=== PATIENT | male | born 1985 | race Caucasian/White ===

== ENCOUNTER → 2016-09-22 | Outpatient (CLI) | payer OTHER ==
[~2016-09-22] MED LIST: CEPH500C PO; SULF800T23 PO
== END | disposition home or self-care (01) ==
LOC: C.LAB 21:27
DX: Z02.83 Encounter for blood-alcohol and blood-drug test (principal)

== ENCOUNTER 2017-08-04 12:46 | Emergency (ER) | payer OTHER ==
[~2017-08-04] VITALS: Ht 188 cm; Wt 67.9 kg
[2017-08-04 12:53] VITALS: TEMP 36.6; Ht 188 cm; Wt 67.9 kg
--- NOTE | 2017-08-04 13:11 | EMERGENCY ROOM VISIT NOTE ---
History Report prepared by Sundar: Luis Chu Under the Supervision of: Dr. Alvarado Mendez M.D. First contact with patient: 12:58 Chief Complaint: FOOT PAIN Stated Complaint: L FOOT INFECTED AND SWOLLEN History of Present Illness The patient is a 32 year old male who presents to the Emergency Room with complaints of constant left foot pain beginning yesterday. He rates his pain as a 3/10 in severity. The patient states he noticed his left foot was pruritic yesterday. He reports the foot became red and swollen. The patient notes his left foot has also been painful. He reports today his right foot became red and swollen. The patient denies any injury, fever, chest pain, and shortness of breath. He states he has a past history of MRSA. The patient states he was put on Suboxone yesterday for his history of opiate abuse. Source of History: patient Onset: yesterday Position: foot (left) Symptom Intensity: 3/10 Timing: constant Associated Symptoms: No fevers, No chest pain, No SOB Note: Associated symptoms: bilateral foot redness and swelling Review of Systems See HPI for pertinent positives & negatives. A total of 10 systems reviewed and were otherwise negative. Past Medical & Surgical Medical Problems: (1) MRSA (methicillin resistant staph aureus) culture positive (2) Opiate abuse, continuous Old medical records were reviewed. Nurse's notes were reviewed and I agree with. Family History Patient reports no known family medical history. Social History Smoking Status: Never Smoker Drug Use: other (opiate) Occupation Status: employed Current/Historical Medications Scheduled Amoxicillin & Pot Clavulanate (Augmentin 875-125 mg), 875 MG PO BID Buprenorphine Hcl-Naloxone Hcl (Suboxone 8-2 Mg), 1 TAB PO BID Sulfa/Trimethoprim (Bactrim Ds 800MG/160MG), 1 TAB PO BID Allergies Coded Allergies: No Known Allergies (Unverified , 08/04/17) Physical Exam Vital Signs Date Time Temp Pulse Resp B/P (MAP) Pulse Ox O2 Delivery O2 Flow Rate FiO2 08/04/17 15:25 70 18 112/72 100 08/04/17 14:11 90 16 128/77 96 Room Air 08/04/17 12:53 36.6 95 16 137/73 98 Room Air Physical Exam General: Non-ill appearing young male in no acute distress. HEENT: Normal cephalic atraumatic. Pupils are equal round and reactive to light. Extraocular movements are intact. Oropharynx is pink with moist mucous membranes. No swelling of the mouth lips or tongue. Multiple lesions to his face. Neck: Supple with a midline trachea. No meningeal signs or stiffness, no JVD or bruits. No Stridor. Chest: Clear to auscultation bilaterally. No wheezes or rhonchi. No increased work of breathing. Heart: regular rate and rhythm. Abdomen: Soft nontender, nondistended without rebound guarding or rigidity. Extremities: No cyanosis clubbing or edema. No calf tenderness or assymetry Mild redness of the left medial shift mostly above the ankle joint. Minimal redness to right foot. Spine/Back. Non tender to palpation. No CVA tenderness Skin: Good turgor without rashes. Neurologic exam: Cranial nerves two through 12 are intact. Motor and sensation are intact and symmetrical throughout. Medical Decision & Procedures ER Provider Diagnostic Interpretation: X-ray results as stated below per interpretation by me and the radiologist: L ANKLE MIN 3 VIEWS ROUTINE HISTORY: 32 years-old Male left ankle pain and swelling acute left ankle pain and swelling COMPARISON: None available TECHNIQUE: 3 views of the left ankle FINDINGS: Small plantar and Achilles enthesophytes about the calcaneus with mild associated soft tissue prominence. No acute fracture, dislocation or osteochondral defect. Mild soft tissue swelling about the ankle without opaque foreign body. IMPRESSION: 1. Mild soft tissue swelling without acute fracture or dislocation. 2. Small plantar and Achilles enthesophytes about the calcaneus. The above report was generated using voice recognition software. It may contain grammatical, syntax or spelling errors. Electronically signed by: Steven Apodaca M.D. 08/04/2017 1:31 PM Dictated Date/Time: 08/04/2017 1:30 PM Laboratory Results 08/04/17 13:15 Red Blood Count 4.49, Mean Corpuscular Volume 84.6, Mean Corpuscular Hemoglobin 30.5, Mean Corpuscular Hemoglobin Concent 36.1, Mean Platelet Volume 9.5, Neutrophils (%) (Auto) 77.2, Lymphocytes (%) (Auto) 11.4, Monocytes (%) (Auto) 9.9, Eosinophils (%) (Auto) 1.3, Basophils (%) (Auto) 0.1, Neutrophils # (Auto) 5.53, Lymphocytes # (Auto) 0.82, Monocytes # (Auto) 0.71, Eosinophils # (Auto) 0.09, Basophils # (Auto) 0.01 08/04/17 13:15 Test 08/04/17 13:15 White Blood Count 7.17 K/uL (4.8-10.8) Red Blood Count 4.49 M/uL (4.7-6.1) Hemoglobin 13.7 g/dL (14.0-18.0) Hematocrit 38.0 % (42-52) Mean Corpuscular Volume 84.6 fL (80-100) Mean Corpuscular Hemoglobin 30.5 pg (25-34) Mean Corpuscular Hemoglobin Concent 36.1 g/dl (32-36) Platelet Count 217 K/uL (130-400) Mean Platelet Volume 9.5 fL (7.4-10.4) Neutrophils (%) (Auto) 77.2 % Lymphocytes (%) (Auto) 11.4 % Monocytes (%) (Auto) 9.9 % Eosinophils (%) (Auto) 1.3 % Basophils (%) (Auto) 0.1 % Neutrophils # (Auto) 5.53 K/uL (1.4-6.5) Lymphocytes # (Auto) 0.82 K/uL (1.2-3.4) Monocytes # (Auto) 0.71 K/uL (0.11-0.59) Eosinophils # (Auto) 0.09 K/uL (0-0.5) Basophils # (Auto) 0.01 K/uL (0-0.2) RDW Standard Deviation 36.4 fL (36.4-46.3) RDW Coefficient of Variation 11.8 % (11.5-14.5) Immature Granulocyte % (Auto) 0.1 % Immature Granulocyte # (Auto) 0.01 K/uL (0.00-0.02) Erythrocyte Sedimentation Rate 24 mm/hr (0-14) Anion Gap 6.0 mmol/L (3-11) Est Creatinine Clear Calc Drug Dose 110.4 ml/min Estimated GFR () 125.6 Estimated GFR (Non- 108.4 BUN/Creatinine Ratio 7.1 (10-20) Uric Acid 5.7 mg/dl (2.6-7.2) Calcium Level 8.6 mg/dl (8.5-10.1) C-Reactive Protein 8.78 mg/dl (0-0.29) Laboratory studies as stated above per my review. Medications Administered Medications (Trade) Dose Ordered Sig/Lisseth Route Start Time Stop Time Status Last Admin Dose Admin Ceftriaxone Sodium (Rocephin Inj) 1 gm NOW STAT IV 08/04/17 14:34 08/04/17 14:36 DC 08/04/17 14:45 1 GM Trimethoprim/ Sulfamethoxazole (Septra Ds 800/ 160MG Tab) 1 tab NOW STAT PO 08/04/17 14:34 08/04/17 14:36 DC 08/04/17 14:45 1 TAB Amoxicillin/ Clavulanate Potassium (Augmentin 875MG Home Pack) 1 homepack UD ONCE PO 08/04/17 14:45 08/04/17 14:46 DC 08/04/17 15:24 1 HOMEPACK Trimethoprim/ Sulfamethoxazole (Sulfameth/ Trimeth Ds 800/ 160MG Home Pack) 1 homepack UD ONCE PO 08/04/17 14:45 08/04/17 14:46 DC 08/04/17 15:24 1 HOMEPACK ED Course 1301: Past medical records reviewed. The patient was evaluated in room C04, and a complete history and physical examination were performed. 1434: Ordered Trimethoprim/Sulfamethoxazole 1 tab PO, Rocephin Injection 1 gm IV. 1445: Ordered Trimethoprim/Sulfamethoxazole 1 homepack PO, Amoxicillin/ clavulanate Potassium 1 homepack PO. 1451: Upon reevaluation, the patient is resting comfortable. I discussed the results and treatment plan with him. The patient verbalized agreement of the treatment plan. The patient was discharged home. Medical Decision Differentials include, but are not limited to; Cellulitis, gout, allergic reaction, electrolyte or metabolic abnormality This patient comes in as described above. He was placed in room C4. he has some redness on his left ankle just mostly above the ankle. He is afebrile. He has some minimal redness along the right foot as well. He appears to been itching a lot. He has multiple scabs on his skin on his face as well. Multiple blood testing was obtained. X-ray was obtained. He was reassessed frequently. He appears stable he is afebrile. His white count is not elevated. Sed rate is minimally elevated. CRP is elevated. X-ray of the ankle does not show any acute abnormalities. He has no acute electrolyte or metabolic abnormalities. He was recently started on Suboxone. he has no evidence to suggest an allergic reaction. he has some mild redness to the left astorga and a lesser degree the right foot. I will put him on Bactrim as well as Augmentin. He does have a history of MRSA. He has no evidence of sepsis or systemic infection. he was given Rocephin 1 g IV as well as Bactrim here and prescriptions for both. I highly encouraged him to have somebody look at this tomorrow and outlined the area of redness. He should have a healthcare professional recheck him tomorrow near his house and I told him that he could always come here would be happy to recheck him here as well. In the meantime he should return if: increasing redness, fever or chills, worsening of symptoms , any new problems or concerns. He was happy with the plan and discharged to home. Medication Reconcilliation Current Medication List: was personally reviewed by me Blood Pressure Screening Patient's blood pressure: Normal blood pressure Impression Primary Impression: Cellulitis of both lower extremities Scribe Attestation The scribe's documentation has been prepared under my direction and personally reviewed by me in its entirety. I confirm that the note above accurately reflects all work, treatment, procedures, and medical decision making performed by me. Departure Information Dispostion Home / Self-Care Prescriptions Amoxicillin & Pot Clavulanate (Augmentin 875-125 mg) 1 Tab Tab 875 MG PO BID for 10 Days, #20 TAB Prov: Alvarado Mendez M.D. 08/04/17 Sulfa/Trimethoprim (Bactrim Ds 800MG/160MG) Tab 1 TAB PO BID, #20 TAB Prov: Alvarado Mendez M.D. 08/04/17 Referrals No Doctor, Assigned (PCP) Forms HOME CARE DOCUMENTATION FORM, IMPORTANT VISIT INFORMATION Patient Instructions My [facility] Additional Instructions Rest. Use Bactrim double strength twice a day for 10 days Use Augmentin 875 mg twice a day for 10 days Return to the ER if you have: Fever, flulike symptoms, increasing redness or warmth, worsening symptoms, any new problems or concerns You should have this rechecked tomorrow either by a doctor in your area or we would be happy to see you back in the ER here for recheck as well. It is important that a healthcare provider looks at this tomorrow to ensure that it is not getting worse Return in the meantime if any new problem
[2017-08-04 13:27] LABS: BASO % 0.1 %; BASO ABS # 0.01 K/uL (0-0.2); EOS % 1.3 %; EOS ABS # 0.09 K/uL (0-0.5); HEMOGLOBIN 13.7 g/dL (14.0-18.0); IG# 0.01 K/uL (0.00-0.02); LYMPH % 11.4 %; LYMPH ABS # 0.82 K/uL (1.2-3.4); MEAN CELL VOLUME 84.6 fL (80-100); MEAN CORPUSCULAR HEMOGLOBIN 30.5 pg (25-34); MEAN CORPUSCULAR HGB CONC 36.1 g/dl (32-36); MEAN PLATELET VOLUME 9.5 fL (7.4-10.4); MONO % 9.9 %; MONO ABS # 0.71 K/uL (0.11-0.59); NEUT % 77.2 %; NEUT ABS # 5.53 K/uL (1.4-6.5); PLATELET COUNT 217 K/uL (130-400); RED CELL DISTRIBUTION WIDTH CV 11.8 % (11.5-14.5); RED CELL DISTRIBUTION WIDTH SD 36.4 fL (36.4-46.3); WHITE BLOOD COUNT 7.17 K/uL (4.8-10.8)
--- NOTE | 2017-08-04 13:33 | DIAGNOSTIC IMAGING REPORT ---
L ANKLE MIN 3 VIEWS ROUTINE HISTORY: 32 years-old Male left ankle pain and swelling acute left ankle pain and swelling COMPARISON: None available TECHNIQUE: 3 views of the left ankle FINDINGS: Small plantar and Achilles enthesophytes about the calcaneus with mild associated soft tissue prominence. No acute fracture, dislocation or osteochondral defect. Mild soft tissue swelling about the ankle without opaque foreign body. IMPRESSION: 1. Mild soft tissue swelling without acute fracture or dislocation. 2. Small plantar and Achilles enthesophytes about the calcaneus. The above report was generated using voice recognition software. It may contain grammatical, syntax or spelling errors. Electronically signed by: Steven Apodaca M.D. 08/04/2017 1:31 PM Dictated Date/Time: 08/04/2017 1:30 PM
[2017-08-04 13:42] LABS: CALCIUM 8.6 mg/dl (8.5-10.1); CREATININE 0.94 mg/dl (0.60-1.40); POTASSIUM 3.3 mmol/L (3.5-5.1); URIC ACID 5.7 mg/dl (2.6-7.2)
[2017-08-04] MEDS ORDERED: BUPR1SUB23 PO (13:45)
[2017-08-04] MEDS ORDERED: SULFAMETHOXAZOLE/TRIMETHOPRIM DS 800/160MG TAB PO STA (14:34)
[2017-08-04] MEDS ORDERED: CEFTRIAXONE SOD INJ 1 GM ADDVIAL IV STA (14:34)
[2017-08-04] MEDS ORDERED: AMOX875T PO (14:38)
[2017-08-04] MEDS ORDERED: SULF800T23 PO (14:38)
[2017-08-04] MEDS ORDERED: SEPTRA DS HOME PACK 1 EA VIAL PO ONE (14:45)
[2017-08-04] MEDS ORDERED: AMOXICIL/CLAVU 875MG HOME PACK PO ONE (14:45)
[2017-08-04 15:25] VITALS: BP 112/72; PULSE 70; O2SAT 100
== END 2017-08-04 15:30 | disposition home or self-care (01) ==
LOC: MERGE 12:48 → C.EDB 12:48 → C.EDC 15:30
DX: L03.115 Cellulitis of right lower limb (principal); L03.116 Cellulitis of left lower limb; Z86.14 Personal history of Methicillin resistant Staphylococcus aureus infection; F11.10 Opioid abuse, uncomplicated; Z79.899 Other long term (current) drug therapy

== ENCOUNTER 2020-04-16 00:58 | Inpatient (IN) ==
[2020-04-16] MEDS ORDERED: CYCLOBENZAPRINE HCL 10 MG TAB PO STA (01:31)
[2020-04-16] MEDS ORDERED: KETOROLAC TROMETHAMINE 15 MG/ML VIAL IV STA (01:31)
[2020-04-16] MEDS ORDERED: SODIUM CHLORIDE 0.9% 1000ML 1,000 ML IV SCH (01:45)
[2020-04-16 02:09] LABS: Basophils # (auto) 0.01 K/uL (0-0.2); Basophils % (auto) 0.2 %; Eosinophils # (auto) 0.23 K/uL (0-0.5); Eosinophils % (auto) 3.9 %; Hematocrit (blood only) 38.3 % (42-52); Hemoglobin 13.4 g/dL (14.0-18.0); Immature Granulocytes # (auto) 0.01 K/uL (0.00-0.02); Immature Granulocytes % (auto) 0.2 %; Lymphocytes % (auto) 10.1 %; Mean Corpuscular Hemoglobin 29.6 pg (25-34); Mean Corpuscular Volume 84.7 fL (80-100); Mean Platelet Volume 10.2 fL (7.4-10.4); Monocytes % (auto) 8.4 %; Neutrophils # (auto) 4.58 K/uL (1.4-6.5); Neutrophils % (auto) 77.2 %; Platelet Count 196 K/uL (130-400); RDW Coefficient of Variation 12.3 % (11.5-14.5); RDW Standard Deviation 37.7 fL (36.4-46.3); Red Blood Count 4.52 M/uL (4.7-6.1); White Blood Count 5.93 K/uL (4.8-10.8)
[2020-04-16 02:18] LABS: INR 1.1 (0.9-1.1); Partial Thromboplastin Ratio 0.9; Partial Thromboplastin Time 26.3 Seconds (21.0-31.0); Prothrombin Time 11.3 Seconds (9.0-12.0)
[2020-04-16 02:26] LABS: Appearance Urine Clear (Clear); Bilirubin Urine Negative (Negative); Blood Urine Negative (Negative); Color Urine Yellow; Glucose Urine UA Negative (Negative); Ketones Urine Trace (Negative); Leukocyte Esterase Urine Negative (Negative); Nitrite Urine Negative (Negative); Protein Urine Negative (Negative); Specific Gravity Urine 1.027 (1.000-1.030); Urobilinogen Urine Negative (Negative); pH Urine 5.5 (4.5-7.5)
[2020-04-16 02:29] LABS: Alanine Aminotransferase 15 U/L (12-78); Aspartate Aminotransferase 15 U/L (15-37); BUN Creatinine Ratio 14.7 (10-20); Blood Urea Nitrogen 15 mg/dl (7-18); Calcium 8.7 mg/dl (8.5-10.1); Carbon Dioxide 30 mmol/L (21-32); Chloride 105 mmol/L (98-107); Creatinine Clr Calc Pharmacy 101.4 ml/min; Est GFR (African American) 110.9; Est GFR (Non-African American) 95.7; Glucose 100 mg/dl (70-99); Lipase 114 U/L (73-393); Potassium 3.2 mmol/L (3.5-5.1); Sodium 139 mmol/L (136-145)
[2020-04-16 02:34] LABS: Albumin Globulin Ratio 1.1 (0.9-2); Alkaline Phosphatase 97 U/L (45-117); Bilirubin,Total 0.3 mg/dl (0.2-1); Globulin 3.5 gm/dl (2.5-4.0); Total Protein 7.5 gm/dl (6.4-8.2); Troponin I < 0.015 ng/ml (0-0.045)
[2020-04-16] MEDS ORDERED: OPTIRAY 320 125ml IV ONE (03:15)
[2020-04-16] MEDS ORDERED: POTASSIUM CHLORIDE / WTR 10 MEQ/100 ML PLCT IV ONE (03:45)
[2020-04-16] MEDS ORDERED: POTASSIUM CHLORIDE CRTAB 20 MEQ TABCR PO STA (03:50)
[2020-04-16 04:15] LABS: Magnesium 2.3 mg/dl (1.8-2.4)
[2020-04-16] MEDS ORDERED: LIDOCAINE 5% 1 PATCH TD STA (04:23)
--- NOTE | 2020-04-16 04:56 | History & Physical Report ---
Date of Service April 16, 2020 Assessment & Plan (1) Pulmonary emboli: First occurrence Likely provoked by immobility from COVID-19 illness diagnosed 2 weeks ago chronic anemia, hemoglobin at baseline chronic pain on Suboxone Hypokalemia secondary to poor p.o. intake secondary to illness Malnutrition (low BMI) Medical telemetry Weight-based Lovenox for now Defer discussion regarding oral anticoagulation choices between patient and AM provider. Lidoderm patch trial for pleurisy secondary to lung clot Replace potassium Nutrition consult RE low BMI DVT prophylaxis. Lovenox Full code Text document was generated using Rad voice recognition software. It may contain grammatical or spelling errors. Kindly contact undersigned for clarification of any documentation item in question. History of Present Illness Chief Complaint: Right flank pain, shortness of breath Primary Care Provider: None History obtained from patient and records. Medical history significant for chronic anemia (baseline hemoglobin of 13), chronic pain on Suboxone. 2 weeks history of flulike symptoms without chest pain, cough, S OB. 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 Patient seen at the ER 2 weeks ago. Covid 19 swab was positive. Patient discharged home with isolation and supportive management advice. Decreased mobility at home. Last night patient noted pleuritic right flank pain with shortness of breath without hemoptysis. No leg swelling. No prior history of blood clots. 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 Allergies Allergy/AdvReac Type Severity Reaction Status Date / Time No Known Allergies Allergy Verified 04/16/20 01:40 Home Medications Medication Instructions Recorded Confirmed Type buprenorphine HCl 12 mg SUBLINGUAL DAILY 04/04/20 04/16/20 History acetaminophen [Tylenol Extra 500 - 1,000 mg PO DIRECTED PRN 04/16/20 04/16/20 History Strength] Past Med/Surg History Medical History (Updated 04/16/20 @ 06:13 by Vicky Manning RN) Drug abuse and dependence Social History Smoking Status: Never smoker Hx Alcohol Use: No Hx Substance Use: Yes Preferred Language: Malay Beliefs That Will Affect Care: None Current Living Situation: Other Feels Safe at Home: Yes Assistive Devices: None Review of Systems Review of Systems: As per HPI, all 10 systems reviewed, all other ROS negative Physical Exam Physical Exam: GENERAL: Slightly uncomfortable, wane, somewhat apathetic, underweight, no respiratory distress SKIN: Pallor, warm HEENT: Pale palpebral conjunctivae, no ptosis, dry buccal mucosa NECK : Supple, no tenderness CHEST : Decreased breath sounds, right chest wall tenderness HEART : Bradycardic , no obvious murmurs ABDOMEN: no distention, nontender EXTREMITIES : No LE swelling/tenderness, no other conspicuous deformities noted NEUROLOGIC : Coherent, no facial asymmetry, slow speech, no other gross focality Results & Data Results & Data ([facility]) Vital Signs (Past 12 Hours) Vital Signs Temp Pulse Resp BP Pulse Ox 04/16/20 03:31 50 L 15 96 04/16/20 03:30 45 L 14 119/68 96 04/16/20 03:01 55 L 14 97 04/16/20 02:30 49 L 18 114/70 96 04/16/20 02:00 81 18 135/85 96 04/16/20 01:48 96 04/16/20 01:30 64 20 120/76 99 04/16/20 01:10 98 04/16/20 01:04 37.4 C 96 H 22 126/71 100 Laboratory Results Laboratory Results WBC 5.93 K/uL (4.8-10.8) 04/16/20 01:48 RBC 4.52 M/uL (4.7-6.1) L 04/16/20 01:48 Hgb 13.4 g/dL (14.0-18.0) L 04/16/20 01:48 Hct 38.3 % (42-52) L 04/16/20 01:48 MCV 84.7 fL (80-100) 04/16/20 01:48 MCH 29.6 pg (25-34) 04/16/20 01:48 MCHC 35.0 g/dL (32-36) 04/16/20 01:48 RDW Std Deviation 37.7 fL (36.4-46.3) 04/16/20 01:48 RDW Coeff of Brian 12.3 % (11.5-14.5) 04/16/20 01:48 Plt Count 196 K/uL (130-400) 04/16/20 01:48 MPV 10.2 fL (7.4-10.4) 04/16/20 01:48 Immature Gran % (Auto) 0.2 % 04/16/20 01:48 Neut % (Auto) 77.2 % 04/16/20 01:48 Lymph % (Auto) 10.1 % 04/16/20 01:48 Barry % (Auto) 8.4 % 04/16/20 01:48 Eos % (Auto) 3.9 % 04/16/20 01:48 Baso % (Auto) 0.2 % 04/16/20 01:48 Neut # (Auto) 4.58 K/uL (1.4-6.5) 04/16/20 01:48 Lymph # (Auto) 0.60 K/uL (1.2-3.4) L 04/16/20 01:48 Barry # (Auto) 0.50 K/uL (0.11-0.59) 04/16/20 01:48 Eos # (Auto) 0.23 K/uL (0-0.5) 04/16/20 01:48 Baso # (Auto) 0.01 K/uL (0-0.2) 04/16/20 01:48 Immature Gran # (Auto) 0.01 K/uL (0.00-0.02) 04/16/20 01:48 PT 11.3 Seconds (9.0-12.0) 04/16/20 01:48 INR 1.1 (0.9-1.1) 04/16/20 01:48 APTT 26.3 Seconds (21.0-31.0) 04/16/20 01:48 PTT Ratio 0.9 04/16/20 01:48 Sodium 139 mmol/L (136-145) 04/16/20 01:48 Potassium 3.2 mmol/L (3.5-5.1) L 04/16/20 01:48 Chloride 105 mmol/L (98-107) 04/16/20 01:48 Carbon Dioxide 30 mmol/L (21-32) 04/16/20 01:48 Anion Gap 4.0 (3-11) 04/16/20 01:48 BUN 15 mg/dl (7-18) 04/16/20 01:48 Creatinine 1.03 mg/dl (0.6-1.4) 04/16/20 01:48 Est Cr Clr Drug Dosing 101.4 ml/min 04/16/20 01:48 Est GFR ( Amer) 110.9 04/16/20 01:48 Est GFR (Non-Af Amer) 95.7 04/16/20 01:48 BUN/Creatinine Ratio 14.7 (10-20) 04/16/20 01:48 Glucose 100 mg/dl (70-99) H 04/16/20 01:48 Calcium 8.7 mg/dl (8.5-10.1) 04/16/20 01:48 Magnesium 2.3 mg/dl (1.8-2.4) 04/16/20 01:48 Total Bilirubin 0.3 mg/dl (0.2-1) 04/16/20 01:48 AST 15 U/L (15-37) 04/16/20 01:48 ALT 15 U/L (12-78) 04/16/20 01:48 Alkaline Phosphatase 97 U/L (45-117) 04/16/20 01:48 Troponin I < 0.015 ng/ml (0-0.045) 04/16/20 01:48 Total Protein 7.5 gm/dl (6.4-8.2) 04/16/20 01:48 Albumin 4.0 gm/dl (3.4-5.0) 04/16/20 01:48 Globulin 3.5 gm/dl (2.5-4.0) 04/16/20 01:48 Albumin/Globulin Ratio 1.1 (0.9-2) 04/16/20 01:48 Lipase 114 U/L (73-393) 04/16/20 01:48 TSH 2.490 uIu/ml (0.300-4.500) 04/16/20 01:48 Urine Color Yellow 04/16/20 02:15 Urine Appearance Clear (Clear) 04/16/20 02:15 Urine pH 5.5 (4.5-7.5) 04/16/20 02:15 Ur Specific [place] 1.027 (1.000-1.030) 04/16/20 02:15 Urine Protein Negative (Negative) 04/16/20 02:15 Urine Glucose (UA) Negative (Negative) 04/16/20 02:15 Urine Ketones Trace (Negative) H 04/16/20 02:15 Urine Blood Negative (Negative) 04/16/20 02:15 Urine Nitrite Negative (Negative) 04/16/20 02:15 Urine Bilirubin Negative (Negative) 04/16/20 02:15 Urine Urobilinogen Negative (Negative) 04/16/20 02:15 Ur Leukocyte Esterase Negative (Negative) 04/16/20 02:[address] chest initial read: Acute pulmonary emboli within segmental and subsegmental branches supplying posterior basal and lateral basal right lower lobe. No evidence of heart strain. Small right pleural effusion. Multifocal pneumonia. Mild paraseptal emphysematous changes lung apices. EKG as per my interpretation rate 65, NSR, normal axis, no ischemia
[2020-04-16] MEDS ORDERED: ENOXAPARIN 80 MG/0.8 ML SYR SQ STA (04:57)
[2020-04-16] MEDS ORDERED: POTASSIUM CHLORIDE 40 MEQ in SODIUM CHLORIDE 0.9% 1000ML 1,000 ML IV ONE (05:00)
[2020-04-16] MEDS ORDERED: INFLUENZA VIRUS QUAD VACCINE 0.5 ML SYR IM ONE (08:00)
[2020-04-16] MEDS ORDERED: INFLUENZA ADMINISTRATION CHARGE ONE (08:00)
--- NOTE | 2020-04-16 08:55 | CT Scan Report ---
CT ANGIOGRAPHY OF THE CHEST, PULMONARY EMBOLUS PROTOCOL CLINICAL HISTORY: Short of breath and chest pain. COMPARISON STUDY: Chest radiograph April 16, 2020. TECHNIQUE: Following IV administration of 119 mL of Optiray-320, helical axial images of the chest we re obtained utilizing the pulmonary embolus protocol. Maximal intensity projections and sagittal and coronal reformats were viewed on an independent 3D workstation. IV contrast was administered withou t complication. Automated exposure control was utilized for the study. A dose lowering technique wa s utilized adhering to the principles of ALARA. CT DOSE: 479.03 mGycm FINDINGS: There are multiple segmental and subsegmental pulmonary emboli within the right lower lobe . There is a small right pleural effusion. There is moderate right lower lobe subpleural opacity. The re is mild subpleural opacity within the left lower lobe. The size of the heart is normal. There is n o pericardial effusion. Mildly enlarged right hilar lymph node measures 1.1 cm in short axis diameter . There is no pneumothorax. There is no pericardial effusion. Bony thorax is unremarkable. Upper abdo men is unremarkable. There is mild paraseptal emphysema. A 9 mm subpleural groundglass opacity within the left lower lobe suggests an infectious process. IMPRESSION: 1. Multiple segmental and subsegmental pulmonary emboli within the right lower lobe. 2. Right lower lobe airspace opacity. This may reflect an infectious process or pulmonary infarct. 9 mm subpleural groundglass opacity within the left lower lobe suggestive of an infectious process. 3. Small right pleural effusion. ACT 112: Negative or not required by law. Electronically signed by: Ricky Harris M.D. 04/16/2020 8:53 AM
[2020-04-16] MEDS ORDERED: buprenorphine HCL 8 MG SUBL SL SCH (09:00)
--- NOTE | 2020-04-16 09:28 | XRay Report ---
XR chest 1V portable CLINICAL HISTORY: SOB, R flank pain COMPARISON STUDY: Chest radiograph April 04, 2020. FINDINGS: There is no pneumothorax or pleural effusion. There are minimal bibasilar opacities. Cardio mediastinal silhouette is unremarkable. There is no evidence for pulmonary edema. IMPRESSION: Minimal bibasilar opacities. ACT 112: Negative or not required by law. Electronically signed by: Ricky Harris M.D. 04/16/2020 9:26 AM
--- NOTE | 2020-04-16 16:38 | Hospitalist Progress Note ---
Date of Service April 16, 2020 Assessment & Plan (1) Pulmonary emboli: And had recent diagnosis of COVID-19 2 weeks ago, therefore likely provoked DVT. Continue with Lovenox twice daily for now. Patient found to be bradycardic, otherwise hemodynamically doing okay. We will likely discharge on Eliquis. History of drug abuse Continue with Subutex Hypokalemia -resolved Malnutrition (low BMI) Admission and Anticipated Discharge Date Admission Date: April 16, 2020 Subjective Patient was resting comfortably. Answers it with only yes and no questions. Does report right-sided subcostal discomfort. Denies any chest pain, shortness of breath or any palpitations denies any dizziness. Denies any abdominal pain. Review of system is negative. Review of Systems Review of Systems: All systems reviewed & are unremarkable except as noted in HPI & below Physical Exam Physical Exam: General: A&Ox3. HENT: NCAT, MMM, EOMI Eyes: PERRLA Neck: Supple, normal range of motion CVS: normal rate and rhythm Resp: b/l decreased breath sounds Abdomen: Soft, nondistended and nontender Extremities: No c/c/e Neuro: No gross focal deficits appreciated Skin: warm and dry, no rashes/lesions/errythema MSK: normal ROM, no joint swelling/erythema Results & Data Results & Data ([facility]) Vital Signs (Past 12 Hours) Vital Signs Temp Pulse Pulse Pulse Resp BP BP 04/16/20 11:46 36.8 C 52 L 18 100/64 04/16/20 07:45 56 L 04/16/20 07:23 36.8 C 56 L 20 112/69 04/16/20 06:27 04/16/20 06:25 36.4 C L 61 20 108/89 04/16/20 05:32 36.5 C 04/16/20 05:31 49 L 18 04/16/20 05:30 65 21 126/79 04/16/20 05:01 46 L 13 04/16/20 05:00 48 L 14 108/70 Pulse Ox Pulse Ox 04/16/20 11:46 97 04/16/20 07:45 04/16/20 07:23 97 04/16/20 06:27 94 04/16/20 06:25 94 04/16/20 05:32 04/16/20 05:31 98 04/16/20 05:30 98 04/16/20 05:01 96 04/16/20 05:00 96
[2020-04-16] MEDS ORDERED: KETOROLAC TROMETHAMINE 15 MG/ML VIAL IV ONE (16:57)
[2020-04-16] MEDS: ENOXAPARIN 80 MG/0.8 ML SYR SQ SCH (17:47)
[2020-04-16] MEDS: CYCLOBENZAPRINE HCL 10 MG TAB PO PRN (20:07)
--- NOTE | 2020-04-16 22:09 | Electrocardiogram Report ---
Test Reason : Blood Pressure : / mmHG Vent. Rate : 065 BPM Atrial Rate : 065 BPM P-R Int : 150 ms QRS Dur : 094 ms QT Int : 384 ms P-R-T Axes : 045 027 043 degrees QTc Int : 399 ms Normal sinus rhythm Normal ECG No previous ECGs available Confirmed by Steven Gómez ([id number]) on 04/16/2020 10:08:45 PM Referred By: REFERRED SELF Confirmed By:Steven Gómez
[2020-04-16] MEDS: ACETAMINOPHEN 325 MG TAB PO PRN (23:59)
[2020-04-17] MEDS ORDERED: POTASSIUM CHLORIDE 40 MEQ in SODIUM CHLORIDE 0.9% 1000ML 1,000 ML IV ONE (01:15)
[2020-04-17] MEDS ORDERED: LORazepam 0.25 MG/0.5 ML VIAL IV STA (04:08)
[2020-04-17 05:39] LABS: Basophils # (auto) 0.01 K/uL (0-0.2); Basophils % (auto) 0.1 %; Eosinophils # (auto) 0.03 K/uL (0-0.5); Eosinophils % (auto) 0.4 %; Hematocrit (blood only) 41.2 % (42-52); Hemoglobin 13.8 g/dL (14.0-18.0); Immature Granulocytes # (auto) 0.01 K/uL (0.00-0.02); Immature Granulocytes % (auto) 0.1 %; Lymphocytes # (auto) 0.51 K/uL (1.2-3.4); Lymphocytes % (auto) 7.5 %; Mean Corpuscular Hemoglobin 28.8 pg (25-34); Mean Corpuscular Hgb Conc 33.5 g/dL (32-36); Mean Platelet Volume 10.3 fL (7.4-10.4); Monocytes # (auto) 0.56 K/uL (0.11-0.59); Monocytes % (auto) 8.2 %; Neutrophils % (auto) 83.7 %; Platelet Count 164 K/uL (130-400); RDW Coefficient of Variation 12.1 % (11.5-14.5); RDW Standard Deviation 38.2 fL (36.4-46.3); Red Blood Count 4.79 M/uL (4.7-6.1); White Blood Count 6.82 K/uL (4.8-10.8)
--- NOTE | 2020-04-17 06:02 | Emergency Department Note ---
Impression & Plan COVID-19, Pulmonary emboli ED Provider Note NAME: MARTINE LEUNG AGE: 34 SEX: M ARRIVES VIA: Ambulance INFORMANT: Patient, ED PROVIDER(S): Lauren Matson MD CHIEF COMPLAINT: R flank PLAN: Disposition: inpatient Condition: Stable Referral: Hospitalist MEDICAL DECISION MAKING: This patient was evaluated and appeared to be in some discomfort. IV access was obtained and laboratory work was drawn. Patient was placed in isolation. An order for cardiac monitoring was placed and the patient is noted to be in sinus rhythm at 96 bpm. Patient was hydrated with normal saline solution, given IV Toradol and Flexeril. Chest x-ray was performed and reveals bibasilar atelectasis. CT imaging of the chest was performed and is significant for segmental subsegmental PE in the right lower lobe. Pleural effusion on the right is also noted. Case was discussed with the hospitalist. Anticoagulation will be deferred to their preference. Patient will be evaluated for further management. Triage Nursing notes reviewed. Prior medical records reviewed Differential diagnosis:.Renal colic, PE, pneumonia, MSK, UTI, appendicitis, diverticulitis, mesenteric ischemia, aortic pathology, infections, inflammatory bowel disease, PUD, biliary pathology, as well as other pathologies. ER treatment provided: IV Toradol, p.o. Flexeril Diagnostics interpreted by me: ECG: Normal sinus rhythm at 65 bpm. QTc is 399. Normal ST segment. No PVC, no PAC. Normal axis. Cardiac Monitoring: An order for cardiac monitoring was placed and the patient is noted to be in a normal sinus rhythm at 96 bpm. Laboratory studies: See below Imaging studies: XR chest 1V portable CLINICAL HISTORY: SOB, R flank pain COMPARISON STUDY: Chest radiograph April 04, 2020. FINDINGS: There is no pneumothorax or pleural effusion. There are minimal bibasilar opacities. Cardiomediastinal silhouette is unremarkable. There is no evidence for pulmonary edema. IMPRESSION: Minimal bibasilar opacities. ACT 112: Negative or not required by law. Electronically signed by: Ricky Harris M.D. 04/16/2020 9:26 AM Dictated: 04/16/20924Transcribed: 04/16/20924 CT ANGIOGRAPHY OF THE CHEST, PULMONARY EMBOLUS PROTOCOL CLINICAL HISTORY: Short of breath and chest pain. COMPARISON STUDY: Chest radiograph April 16, 2020. TECHNIQUE: Following IV administration of 119 mL of Optiray-320, helical axial images of the chest were obtained utilizing the pulmonary embolus protocol. Maximal intensity projections and sagittal and coronal reformats were viewed on an independent 3D workstation. IV contrast was administered without complication. Automated exposure control was utilized for the study. A dose lowering technique was utilized adhering to the principles of ALARA. CT DOSE: 479.03 mGycm FINDINGS: There are multiple segmental and subsegmental pulmonary emboli within the right lower lobe. There is a small right pleural effusion. There is moderate right lower lobe subpleural opacity. There is mild subpleural opacity within the left lower lobe. The size of the heart is normal. There is no pericardial effusion. Mildly enlarged right hilar lymph node measures 1.1 cm in short axis diameter. There is no pneumothorax. There is no pericardial effusion. Bony thorax is unremarkable. Upper abdomen is unremarkable. There is mild paraseptal emphysema. A 9 mm subpleural groundglass opacity within the left lower lobe suggests an infectious process. IMPRESSION: 1. Multiple segmental and subsegmental pulmonary emboli within the right lower lobe. 2. Right lower lobe airspace opacity. This may reflect an infectious process or pulmonary infarct. 9 mm subpleural groundglass opacity within the left lower lobe suggestive of an infectious process. 3. Small right pleural effusion. ACT 112: Negative or not required by law. Electronically signed by: Ricky Harris M.D. 04/16/2020 8:53 AM Dictated: 04/16/20847Transcribed: 04/16/20847 Consultation(s): Hospitalist HPI: 34/M arrives for evaluation of right flank pain. Patient states it began suddenly at 6 PM this evening. He denies taking any Tylenol or ibuprofen to help alleviate the pain. He denies any significant heavy lifting or trauma to the area. He denies any fevers, chills, chest pain or shortness of breath. He states he was recently diagnosed with Covid. Patient does have a smoking history. He states he takes Suboxone because of a history of IV drug abuse but no longer uses. He denies any vomiting or diarrhea. ROS: See above HPI for pertinent positives & negatives. A total of 10 systems reviewed and were otherwise negative. PAST MEDICAL HISTORY:See Below PAST SURGICAL HISTORY:See Below FAMILY HISTORY:See Below SOCIAL HISTORY:See Below HOME MEDICATIONS:See Below ALLERGIES:See Below PHYSICAL EXAMINATION: Vital signs reviewed. General: Somewhat uncomfortable-appearing 34-year-old male, in no significant distress. HEENT: No scleral icterus, PERRLA, neck supple. Atraumatic. Cardiovascular: Regular rate and rhythm, no extra sounds. Pulmonary: Clear to auscultation bilaterally, normal work of breathing. Abdomen: Soft, nontender, nondistended, positive bowel sounds. Musculoskeletal: Atraumatic, no peripheral edema. No CVA tenderness. There is some discomfort to palpation of the right lumbar paraspinous muscles. Neurologic: Patient awake alert and oriented x 3 Skin: Warm, dry, no rash Lauren Matson MD Past Med/Surg History Medical History (Updated 04/17/20 @ 06:00 by Lauren Matson MD) Drug abuse and dependence Social History Smoking Status: Never smoker Hx Alcohol Use: No Hx Substance Use: Yes Preferred Language: Citizen Of The [place] Beliefs That Will Affect Care: None Current Living Situation: Other Feels Safe at Home: Yes Assistive Devices: None Allergies Allergies Allergy/AdvReac Type Severity Reaction Status Date / Time No Known Allergies Allergy Verified 04/16/20 01:40 Home Meds Home Medications Medication Instructions Recorded Confirmed buprenorphine HCl 12 mg SUBLINGUAL DAILY 04/04/20 04/16/20 acetaminophen [Tylenol Extra 500 - 1,000 mg PO DIRECTED PRN 04/16/20 04/16/20 Strength] Results & Data (ED) Home Medications Current Medication List: was personally reviewed by me Laboratory Data Attestation: I reviewed the patient's lab results. Result diagrams: 04/17/20 05:21 04/16/20 01:48 Lab Results 04/16/20 04/16/20 04/16/20 Range/Units 01:48 01:48 01:48 WBC 5.93 (4.8-10.8) K/uL RBC 4.52 L (4.7-6.1) M/uL Hgb 13.4 L (14.0-18.0) g/dL Hct 38.3 L (42-52) % MCV 84.7 (80-100) fL MCH 29.6 (25-34) pg MCHC 35.0 (32-36) g/dL RDW Std Deviation 37.7 (36.4-46.3) fL RDW Coeff of Brian 12.3 (11.5-14.5) % Plt Count 196 (130-400) K/uL MPV 10.2 (7.4-10.4) fL Immature Gran % (Auto) 0.2 % Neut % (Auto) 77.2 % Lymph % (Auto) 10.1 % Twiggs % (Auto) 8.4 % Eos % (Auto) 3.9 % Baso % (Auto) 0.2 % Neut # (Auto) 4.58 (1.4-6.5) K/uL Lymph # (Auto) 0.60 L (1.2-3.4) K/uL Twiggs # (Auto) 0.50 (0.11-0.59) K/uL Eos # (Auto) 0.23 (0-0.5) K/uL Baso # (Auto) 0.01 (0-0.2) K/uL Immature Gran # (Auto) 0.01 (0.00-0.02) K/uL PT 11.3 (9.0-12.0) Seconds INR 1.1 (0.9-1.1) APTT 26.3 (21.0-31.0) Seconds PTT Ratio 0.9 Sodium 139 (136-145) mmol/L Potassium 3.2 L (3.5-5.1) mmol/L Chloride 105 (98-107) mmol/L Carbon Dioxide 30 (21-32) mmol/L Anion Gap 4.0 (3-11) BUN 15 (7-18) mg/dl Creatinine 1.03 (0.6-1.4) mg/dl Est Cr Clr Drug Dosing 101.4 ml/min Est GFR ( Amer) 110.9 Est GFR (Non-Af Amer) 95.7 BUN/Creatinine Ratio 14.7 (10-20) Glucose 100 H (70-99) mg/dl Calcium 8.7 (8.5-10.1) mg/dl Magnesium 2.3 (1.8-2.4) mg/dl Total Bilirubin 0.3 (0.2-1) mg/dl AST 15 (15-37) U/L ALT 15 (12-78) U/L Alkaline Phosphatase 97 (45-117) U/L Troponin I < 0.015 (0-0.045) ng/ml Total Protein 7.5 (6.4-8.2) gm/dl Albumin 4.0 (3.4-5.0) gm/dl Globulin 3.5 (2.5-4.0) gm/dl Albumin/Globulin Ratio 1.1 (0.9-2) Lipase 114 (73-393) U/L TSH 2.490 (0.300-4.500) uIu/ml Urine Color Urine Appearance (Clear) Urine pH (4.5-7.5) Ur Specific [place] (1.000-1.030) Urine Protein (Negative) Urine Glucose (UA) (Negative) Urine Ketones (Negative) Urine Blood (Negative) Urine Nitrite (Negative) Urine Bilirubin (Negative) Urine Urobilinogen (Negative) Ur Leukocyte Esterase (Negative) 04/16/20 Range/Units 02:15 WBC (4.8-10.8) K/uL RBC (4.7-6.1) M/uL Hgb (14.0-18.0) g/dL Hct (42-52) % MCV (80-100) fL MCH (25-34) pg MCHC (32-36) g/dL RDW Std Deviation (36.4-46.3) fL RDW Coeff of Brian (11.5-14.5) % Plt Count (130-400) K/uL MPV (7.4-10.4) fL Immature Gran % (Auto) % Neut % (Auto) % Lymph % (Auto) % Twiggs % (Auto) % Eos % (Auto) % Baso % (Auto) % Neut # (Auto) (1.4-6.5) K/uL Lymph # (Auto) (1.2-3.4) K/uL Twiggs # (Auto) (0.11-0.59) K/uL Eos # (Auto) (0-0.5) K/uL Baso # (Auto) (0-0.2) K/uL Immature Gran # (Auto) (0.00-0.02) K/uL PT (9.0-12.0) Seconds INR (0.9-1.1) APTT (21.0-31.0) Seconds PTT Ratio Sodium (136-145) mmol/L Potassium (3.5-5.1) mmol/L Chloride (98-107) mmol/L Carbon Dioxide (21-32) mmol/L Anion Gap (3-11) BUN (7-18) mg/dl Creatinine (0.6-1.4) mg/dl Est Cr Clr Drug Dosing ml/min Est GFR ( Amer) Est GFR (Non-Af Amer) BUN/Creatinine Ratio (10-20) Glucose (70-99) mg/dl Calcium (8.5-10.1) mg/dl Magnesium (1.8-2.4) mg/dl Total Bilirubin (0.2-1) mg/dl AST (15-37) U/L ALT (12-78) U/L Alkaline Phosphatase (45-117) U/L Troponin I (0-0.045) ng/ml Total Protein (6.4-8.2) gm/dl Albumin (3.4-5.0) gm/dl Globulin (2.5-4.0) gm/dl Albumin/Globulin Ratio (0.9-2) Lipase (73-393) U/L TSH (0.300-4.500) uIu/ml Urine Color Yellow Urine Appearance Clear (Clear) Urine pH 5.5 (4.5-7.5) Ur Specific [place] 1.027 (1.000-1.030) Urine Protein Negative (Negative) Urine Glucose (UA) Negative (Negative) Urine Ketones Trace H (Negative) Urine Blood Negative (Negative) Urine Nitrite Negative (Negative) Urine Bilirubin Negative (Negative) Urine Urobilinogen Negative (Negative) Ur Leukocyte Esterase Negative (Negative) Administered Medications Acetaminophen (Acetaminophen 325 Mg Tab) 650 mg PO Q4H PRN PRN Reason: Pain or Fever Stop: 05/16/20 05:51 Last Admin: 04/16/20 23:59 Dose: 650 mg Documented by: [id number] Buprenorphine HCl (Buprenorphine Hcl 8 Mg Subl) 12 mg SL DAILY DENISE Stop: 05/16/20 08:59 Last Admin: 04/16/20 09:57 Dose: 12 mg Documented by: [id number] Cyclobenzaprine HCl (Cyclobenzaprine Hcl 10 Mg Tab) 10 mg PO Q6H PRN PRN Reason: Pain Stop: 05/16/20 18:28 Last Admin: 04/16/20 20:07 Dose: 10 mg Documented by: [id number] Enoxaparin Sodium (Enoxaparin 80 Mg/0.8 Ml Syr) 70 mg SQ Q12H [facility] Stop: 05/16/20 17:59 Last Admin: 04/16/20 17:47 Dose: 70 mg Documented by: [id number] Potassium Chloride 40 meq/ (Sodium Chloride) 1,020 mls @ 100 mls/hr IV .[id number] ONE Stop: 04/17/20 11:26 Last Admin: 04/17/20 02:27 Dose: 100 mls/hr Documented by: [id number] Miscellaneous (Remove Lidoderm Patch) 1 ea N/A DAILY@2100 [facility] Stop: 05/16/20 16:59 Last Admin: 04/16/20 17:48 Dose: 1 ea Documented by: [id number] Discontinued Medications Cyclobenzaprine HCl (Cyclobenzaprine Hcl 10 Mg Tab) 5 mg PO NOW STA Stop: 04/16/20 01:32 Last Admin: 04/16/20 01:57 Dose: 5 mg Documented by: [id number] Enoxaparin Sodium (Enoxaparin 80 Mg/0.8 Ml Syr) 70 mg SQ ONE STA Stop: 04/16/20 04:58 Last Admin: 04/16/20 06:47 Dose: 70 mg Documented by: [id number] Sodium Chloride (Nss 1000ml) 1,000 mls @ 999 mls/hr IV .Q1H1M DENISE Stop: 04/16/20 02:45 Last Infusion: 04/16/20 02:50 Dose: 0 mls/hr Documented by: [id number] Admin: 04/16/20 01:57 Dose: 999 mls/hr Documented by: [id number] Potassium Chloride (K Miquel / Wtr) 10 meq in 100 mls @ 100 mls/hr IV ONE ONE Stop: 04/16/20 04:44 Last Infusion: 04/16/20 06:45 Dose: 0 mls/hr Documented by: [id number] Admin: 04/16/20 05:20 Dose: 100 mls/hr Documented by: [id number] Potassium Chloride 40 meq/ (Sodium Chloride) 1,020 mls @ 75 mls/hr IV .[id number] ONE Stop: 04/16/20 18:35 Last Infusion: 04/16/20 20:38 Dose: 0 mls/hr Documented by: [id number] Admin: 04/16/20 06:45 Dose: 75 mls/hr Documented by: [id number] Lorazepam (Ativan) 0.25 mg in 0.5 mls @ 0.5 mls/min IV NOW STA Stop: 04/17/20 04:09 Last Admin: 04/17/20 04:28 Dose: 0.5 mls/min Documented by: [id number] Influenza Virus Vaccine Quadrival (Influenza Virus Quad Vaccine 0.5 Ml Syr) 0.5 ml IM .ONCE ONE Stop: 04/16/20 08:01 Last Admin: 04/16/20 07:37 Dose: Not Given Documented by: [id number] Ioversol (Optiray 320 125ml) 119 ml IV ONCE ONE Stop: 04/16/20 03:16 Last Admin: 04/16/20 03:15 Dose: 119 ml Documented by: [id number] Ketorolac Tromethamine (Ketorolac Tromethamine 15 Mg/Ml Vial) 15 mg IV NOW STA Stop: 04/16/20 01:32 Last Admin: 04/16/20 01:57 Dose: 15 mg Documented by: [id number] Ketorolac Tromethamine (Ketorolac Tromethamine 15 Mg/Ml Vial) 15 mg IV NOW ONE Stop: 04/16/20 16:58 Last Admin: 04/16/20 17:48 Dose: 15 mg Documented by: [id number] Lidocaine (Lidocaine 5% 1 Patch) 1 patch TD ONE STA Stop: 04/16/20 04:24 Last Admin: 04/16/20 05:21 Dose: 1 patch Documented by: [id number] Potassium Chloride (Potassium Chloride Crtab 20 Meq Tabcr) 40 meq PO NOW STA Stop: 04/16/20 03:51 Last Admin: 04/16/20 05:21 Dose: 40 meq Documented by: [id number] Discharge Plan Visit Data Chief Complaint: Shortness of Breath/Dyspnea Stated Complaint: COVID +, SOB ED Provider: Lauren Matson Discharge Problem: COVID-19, Pulmonary emboli Patient Disposition: Admitted As Inpatient Discharge Instructions Interventions: ED Discharge Assessment Last Done: 04/16/20 05:43
[2020-04-17] MEDS ORDERED: ENOXAPARIN 80 MG/0.8 ML SYR SQ ONE (06:08)
[2020-04-17 06:09] LABS: Albumin Globulin Ratio 1.1 (0.9-2); Albumin Level 3.7 gm/dl (3.4-5.0); BUN Creatinine Ratio 14.5 (10-20); Calcium 8.7 mg/dl (8.5-10.1); Creatinine Clr Calc Pharmacy 136.3 ml/min; Est GFR (African American) 137.7; Est GFR (Non-African American) 118.8; Globulin 3.5 gm/dl (2.5-4.0); Total Protein 7.2 gm/dl (6.4-8.2)
[2020-04-17] MEDS ORDERED: POLYETHYLENE (MIRALAX) 17 GM PACK PO PRN (06:46)
[2020-04-17] MEDS: buprenorphine HCL 8 MG SUBL SL SCH (07:39)
[2020-04-17] MEDS: CYCLOBENZAPRINE HCL 10 MG TAB PO PRN ×3 (07:40→21:03)
[2020-04-17] MEDS: ACETAMINOPHEN 325 MG TAB PO PRN ×3 (07:44→21:03)
[2020-04-17 07:52] LABS: Potassium 3.8 mmol/L (3.5-5.1)
[2020-04-17] MEDS: DOCUSATE SODIUM/SENNA 50/8.6MG TAB PO SCH (08:42)
--- NOTE | 2020-04-17 08:46 | CT Scan Report ---
ABDOMEN AND PELVIS CT WITHOUT CONTRAST CT DOSE: 890.93 mGycm HISTORY: Right flank pain TECHNIQUE: Multiaxial CT images of the abdomen and pelvis were performed without contrast. A dose lo wering technique was utilized adhering to the principles of ALARA. COMPARISON STUDY: Chest CTA 04/06/2020. FINDINGS: Please refer to same day chest CT for further evaluation of the right lower lobe pulmonary emboli. Small right pleural effusion and a trace left pleural effusion. Consolidation within the base of the right lower lobe has progressed. This favors a pulmonary infarct. Superimposed atelectasis or pneumonia cannot be excluded. There is also consolidation within the base of the left lower lobe fav oring compressive atelectasis from the pleural effusion. Motion artifact. No pneumoperitoneum. No pne umatosis. No fractures within the visualized osseous structures. The unenhanced liver, gallbladder, s pleen, adrenal glands, and pancreas are unremarkable. Mild motion artifact. No renal or ureteral calc rodolfo. No hydronephrosis. No retroperitoneal lymphadenopathy. The bladder is filled with contrast and t he prior CT examination. Trace pelvic free fluid. Suboptimal evaluation for bowel pathology due to th e lack of intravenous and oral contrast. However, there is no definite bowel wall thickening or obstr uction. Moderate well-formed stool seen throughout the colon. Normal appendix. IMPRESSION: 1. Small bilateral pleural effusions and bilateral lower lobe consolidation, right greater than left, have progressed. The right lower lobe consolidation favors a pulmonary infarct given the patient's k nown pulmonary emboli. Superimposed pneumonia and/or atelectasis cannot be excluded. 2. No definite bowel wall thickening or obstruction. 3. Normal appendix. 4. Trace pelvic free fluid. ACT 112: Negative or not required by law. Electronically signed by: Mo Marrero M.D. 04/17/2020 8:45 AM
[2020-04-17] MEDS: LIDOCAINE 5% 1 PATCH TD SCH (11:12)
--- NOTE | 2020-04-17 12:05 | Hospitalist Progress Note ---
Date of Service April 17, 2020 Assessment & Plan (1) Pulmonary emboli: Patient had recent diagnosis of COVID-19 2 weeks ago, therefore likely provoked DVT. Continue with Lovenox twice daily for now. Will switch to eliquis prior to DC. Hemodynamically patient is doing okay. Currently remains on room air. Possible community-acquired pneumonia On CT abdomen/pelvis patient found to have small bilateral pleural effusions and bilateral lower lobe consolidations. T-max of 38.1 this morning. White count is within normal limit. Will obtain procalcitonin level. Will start patient on ceftriaxone and azithromycin for now. History of drug abuse Continue with Subutex Hypokalemia -resolved Malnutrition (low BMI) Admission and Anticipated Discharge Date Admission Date: April 16, 2020 Subjective Overnight patient was complaining of right subcostal/flank pain. CT abdome n/pelvis was obtained this morning patient is doing okay but does endorse achiness all over specifically at the right subcostal region. Does report chest pain with deep breathing. Denies any fever or diaphoresis. However, T-max of 38.1 this morning. Remains on on room air. Hemodynamically doing okay. Review of Systems Review of Systems: All systems reviewed & are unremarkable except as noted in HPI & below Physical Exam Physical Exam: General: A&Ox3. HENT: NCAT, MMM, EOMI Eyes: PERRLA Neck: Supple, normal range of motion CVS: normal rate and rhythm Resp: b/l decreased breath sounds Abdomen: Soft, nondistended and nontender Extremities: No c/c/e Neuro: No gross focal deficits appreciated Skin: warm and dry MSK: normal ROM Results & Data Results & Data ([facility]) Vital Signs (Past 12 Hours) Vital Signs Temp Pulse Pulse Resp BP Pulse Ox 04/17/20 11:15 36.8 C 74 18 118/76 97 04/17/20 08:44 38.1 C H 04/17/20 07:23 37.6 C H 77 16 130/75 97 04/17/20 03:54 36.9 C 96 H 20 135/82 98 04/17/20 00:32 58 L
[2020-04-17] MEDS ORDERED: AZITHROMYCIN 250 MG TAB PO ONE (12:30)
[2020-04-17] MEDS: cefTRIAXone SODIUM 1,000 MG in DEXTROSE 5% 50 ML IV SCH (13:40)
[2020-04-17] MEDS: ENOXAPARIN 80 MG/0.8 ML SYR SQ SCH (18:19)
[2020-04-18] MEDS: ACETAMINOPHEN 325 MG TAB PO PRN ×2 (03:02→17:48)
[2020-04-18] MEDS: CYCLOBENZAPRINE HCL 10 MG TAB PO PRN ×3 (03:02→17:45)
[2020-04-18] MEDS: ENOXAPARIN 80 MG/0.8 ML SYR SQ SCH ×2 (05:47→17:45)
[2020-04-18 07:47] LABS: Basophils # (auto) 0.01 K/uL (0-0.2); Basophils % (auto) 0.1 %; Eosinophils # (auto) 0.03 K/uL (0-0.5); Eosinophils % (auto) 0.4 %; Hematocrit (blood only) 38.3 % (42-52); Hemoglobin 12.9 g/dL (14.0-18.0); Immature Granulocytes # (auto) 0.01 K/uL (0.00-0.02); Immature Granulocytes % (auto) 0.1 %; Lymphocytes % (auto) 6.7 %; Mean Corpuscular Hemoglobin 29.1 pg (25-34); Mean Corpuscular Hgb Conc 33.7 g/dL (32-36); Mean Corpuscular Volume 86.5 fL (80-100); Mean Platelet Volume 10.6 fL (7.4-10.4); Monocytes # (auto) 0.58 K/uL (0.11-0.59); Monocytes % (auto) 7.8 %; Neutrophils # (auto) 6.28 K/uL (1.4-6.5); Neutrophils % (auto) 84.9 %; Platelet Count 176 K/uL (130-400); RDW Coefficient of Variation 12.2 % (11.5-14.5); Red Blood Count 4.43 M/uL (4.7-6.1); White Blood Count 7.41 K/uL (4.8-10.8)
[2020-04-18 08:14] LABS: Albumin Level 3.2 gm/dl (3.4-5.0); BUN Creatinine Ratio 14.5 (10-20); Calcium 9.2 mg/dl (8.5-10.1); Creatinine Clr Calc Pharmacy 160.3 ml/min; Est GFR (African American) 147.4; Est GFR (Non-African American) 127.1; Potassium 4.1 mmol/L (3.5-5.1)
[2020-04-18 08:22] LABS: Albumin Globulin Ratio 0.8 (0.9-2); Bilirubin,Total 0.9 mg/dl (0.2-1); C Reactive Protein 24.1 mg/dl (0-0.29); Globulin 3.9 gm/dl (2.5-4.0); Total Protein 7.1 gm/dl (6.4-8.2)
[2020-04-18] MEDS ORDERED: KETOROLAC TROMETHAMINE 15 MG/ML VIAL IM PRN (08:30)
[2020-04-18] MEDS: LIDOCAINE 5% 1 PATCH TD SCH (08:37)
[2020-04-18] MEDS: DOCUSATE SODIUM/SENNA 50/8.6MG TAB PO SCH (08:37)
[2020-04-18] MEDS: cefTRIAXone SODIUM 1,000 MG in DEXTROSE 5% 50 ML IV SCH (08:37)
[2020-04-18] MEDS: buprenorphine HCL 8 MG SUBL SL SCH (08:41)
[2020-04-18] MEDS: KETOROLAC TROMETHAMINE 15 MG/ML VIAL IV PRN (08:41)
--- NOTE | 2020-04-18 12:11 | Hospitalist Progress Note ---
Date of Service April 18, 2020 Assessment & Plan (1) Pulmonary emboli: Patient had recent diagnosis of COVID-19 2 weeks ago, therefore likely provoked DVT. Continue with Lovenox twice daily for now. Will switch to eliquis prior to DC. Hemodynamically patient is doing okay. Currently remains on room air. Right subcostal pain likely pleuritic in nature. Toradol as needed on board. Possible community-acquired pneumonia On CT abdomen/pelvis patient found to have small bilateral pleural effusions and bilateral lower lobe consolidations. Did have low-grade temperature earlier in the admission. Calcitonin is not concerning. Continue with ceftriaxone/azithromycin. History of drug abuse Continue with Subutex Hypokalemia -resolved Malnutrition (low BMI) Admission and Anticipated Discharge Date Admission Date: April 16, 2020 I spoke with his sister today and updated her. Attempted to call her yesterday and left voicemail as well. Subjective Okay this morning. Currently patient is on room air. Currently having breakfast. Reports he feels better. Family complaint is right subcostal chest pain. Denies any shortness of breath. Does have more right subcostal discomfort with deep breathing. Denies any significant cough. Rest of the review of system is negative. Review of Systems Review of Systems: All systems reviewed & are unremarkable except as noted in HPI & below Physical Exam Physical Exam: General: A&Ox3. HENT: NCAT, MMM, EOMI Eyes: PERRLA Neck: Supple, normal range of motion CVS: normal rate and rhythm Resp: b/l decreased breath sounds, absence of any right subcostal tenderness Abdomen: Soft, nondistended and nontender Extremities: No c/c/e Neuro: No gross focal deficits appreciated Skin: warm and dry MSK: normal ROM Results & Data Results & Data ([facility]) Vital Signs (Past 12 Hours) Vital Signs Temp Pulse Pulse Resp BP Pulse Ox Pulse Ox 04/18/20 11:35 36.7 C 94 H 18 119/77 98 04/18/20 07:42 37.0 C 94 H 18 115/75 96 04/18/20 05:49 93 04/18/20 03:10 88 97 04/18/20 03:02 36.9 C 117 H 18 140/88 97 04/18/20 02:00 68 94
[2020-04-18] MEDS: AZITHROMYCIN 250 MG TAB PO SCH (12:39)
[2020-04-19] MEDS: ACETAMINOPHEN 325 MG TAB PO PRN (02:38)
[2020-04-19] MEDS: ENOXAPARIN 80 MG/0.8 ML SYR SQ SCH (06:00)
[2020-04-19] MEDS: KETOROLAC TROMETHAMINE 15 MG/ML VIAL IV PRN ×2 (06:11→16:51)
[2020-04-19] MEDS: buprenorphine HCL 8 MG SUBL SL SCH (08:19)
[2020-04-19] MEDS: cefTRIAXone SODIUM 1,000 MG in DEXTROSE 5% 50 ML IV SCH (08:19)
[2020-04-19] MEDS: AZITHROMYCIN 250 MG TAB PO SCH (08:20)
[2020-04-19] MEDS: DOCUSATE SODIUM/SENNA 50/8.6MG TAB PO SCH (08:20)
[2020-04-19] MEDS: LIDOCAINE 5% 1 PATCH TD SCH (08:20)
[2020-04-19] MEDS: CYCLOBENZAPRINE HCL 10 MG TAB PO PRN (08:44)
--- NOTE | 2020-04-19 11:12 | Discharge Summary ---
Date of Service April 19, 2020 Admission HPI Per Admitting Provider History obtained from patient and records. Medical history significant for chronic anemia (baseline hemoglobin of 13), chronic pain on Suboxone. 2 weeks history of flulike symptoms without chest pain, cough, S OB. 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 Patient seen at the ER 2 weeks ago. Covid 19 swab was positive. Patient discharged home with isolation and supportive management advice. Decreased mobility at home. Last night patient noted pleuritic right flank pain with shortness of breath without hemoptysis. No leg swelling. No prior history of blood clots. 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 Admission Exam Per Admitting Provider GENERAL: Slightly uncomfortable, wane, somewhat apathetic, underweight, no resp iratory distress SKIN: Pallor, warm HEENT: Pale palpebral conjunctivae, no ptosis, dry buccal mucosa NECK : Supple, no tenderness CHEST : Decreased breath sounds, right chest wall tenderness HEART : Bradycardic , no obvious murmurs ABDOMEN: no distention, nontender EXTREMITIES : No LE swelling/tenderness, no other conspicuous deformities noted NEUROLOGIC : Coherent, no facial asymmetry, slow speech, no other gross focality Principal Diagnosis Pulmonary embolus Discharge Exam General: A&Ox3. HENT: NCAT, MMM, EOMI Eyes: PERRLA Neck: Supple, normal range of motion CVS: normal rate and rhythm Resp: b/l decreased breath sounds, absence of any right subcostal tenderness Abdomen: Soft, nondistended and nontender Extremities: No c/c/e Neuro: No gross focal deficits appreciated Skin: warm and dry MSK: normal ROM Discharge Data Allergies Allergy/AdvReac Type Severity Reaction Status Date / Time No Known Allergies Allergy Verified 04/16/20 01:40 Consultations 04/16/20 03:51 ED Decision to Admit Stat Ordered Studies 04/16/20 01:32 CT angio chest PE protocol Urgent 04/17/20 04:09 CT abd pelvis wo con Urgent Hospital Course (1) Pulmonary emboli: Patient had recent diagnosis of COVID-19 2 weeks ago, therefore likely provoked DVT. Patient was initially treated with Lovenox. Prior to discharge patient was transitioned to Eliquis. He needs Eliquis for a total of 3 months. His primary complaint during this hospitalization was right subcostal pain. CT abdomen/pelvis was obtained which did not reveal any concerning findings except possible infarct patient was treated with Toradol. Possible community-acquired pneumonia On CT abdomen/pelvis patient found to have small bilateral pleural effusions and bilateral lower lobe consolidations. Did have low-grade temperature earlier in the admission. Procalcitonin was not concerning. Patient was treated with ceftriaxone/azithromycin for a total of 3 days. At discharge patient was transitioned to Levaquin for 2 more days. History of drug abuse Continue with Subutex Hypokalemia -resolved Malnutrition (low BMI) Total Time Total Time Spent Total Time Spent (In Minutes): 35 Discharge Plan Discharge Items Patient Disposition: Home - Self-Care Reason For Visit: PE, COVID Discharge Diagnosis: Pulmonary embolism Activity: Resume your previous activity Non-emergency contact: Primary Care Provider Call non-emergency contact if: your symptoms worsen and your pain is concerning for you Follow-up/Referrals: Nixon Man MD [Primary Care Provider] - Diet: Regular Addtl Attending Provider Instructions: Follow-up with your primary care physician within 3 to 5 days. An appointment has been requested. Start taking Eliquis 10 mg daily for 7 days followed by 5 mg daily. Take Levaquin for a total of 2 days starting tomorrow. Pending Studies at Discharge: No Stand-Alone Forms: [facility] [employer], Smoking Cessation Medications and DC Order Prescriptions: New Eliquis 5 mg Tablet 10 mg PO BID Qty: 112 RF: 0 levofloxacin 500 mg tablet 500 mg PO DAILY 2 Days Qty: 2 RF: 0 Continued buprenorphine HCl 8 mg tablet, sublingual 12 mg SUBLINGUAL DAILY RF: 0 acetaminophen [Tylenol Extra Strength] 500 mg Tablet 500 - 1,000 mg PO DIRECTED PRN (Reason: FEVER/PAIN) RF: 0 Discharge Orders: Discharge Order (Routine); Ordered 04/19/20 Ordered By: María Elena Bonner Admission Data Admit Date/Time: 04/16/20 04:58 Attending Provider: María Elena Bonner Admit Provider: Juvenal Ellington Primary Care Provider: Nixon Man Other Providers: Juvenal Ellington
--- NOTE | 2020-04-19 14:58 | Hospitalist Progress Note ---
Date of Service April 19, 2020 Assessment & Plan (1) Pulmonary emboli: Patient had recent diagnosis of COVID-19 2 weeks ago, therefore likely provoked DVT. Patient transition to [facility] today. Medically he is okay to be discharged. However awaiting insurance authorization for the Eliquis. If authorization is not obtained today, likely to stay here for the night and discharge tomorrow morning. Otherwise patient would need Coumadin. His primary complaint during this hospitalization was right subcostal pain. CT abdomen/pelvis was obtained which did not reveal any concerning findings except possible infarct patient was treated with Toradol. Possible community-acquired pneumonia On CT abdomen/pelvis patient found to have small bilateral pleural effusions and bilateral lower lobe consolidations. Did have low-grade temperature earlier in the admission. Procalcitonin was not concerning. Patient was treated with ceftriaxone/azithromycin. At discharge patient would needLevaquin for 2 more days. History of drug abuse Continue with Subutex Hypokalemia -resolved Malnutrition (low BMI) Admission and Anticipated Discharge Date Admission Date: April 16, 2020 Subjective Patient doing okay this morning. Hemodynamically stable. On room air. Right subcostal pain is improved. Review of Systems Review of Systems: All systems reviewed & are unremarkable except as noted in HPI & below Physical Exam Physical Exam: General: A&Ox3. HENT: NCAT, MMM, EOMI Eyes: PERRLA Neck: Supple, normal range of motion CVS: normal rate and rhythm Resp: b/l decreased breath sounds, absence of any right subcostal tenderness Abdomen: Soft, nondistended and nontender Extremities: No c/c/e Neuro: No gross focal deficits appreciated Skin: warm and dry MSK: normal ROM Results & Data Results & Data ([facility]) Vital Signs (Past 12 Hours) Vital Signs Temp Pulse Pulse Pulse Resp BP Pulse Ox 04/19/20 11:39 37.0 C 94 H 75 18 110/68 96 04/19/20 11:09 37.0 C 75 18 110/68 96 04/19/20 09:21 90 04/19/20 07:24 36.7 C 57 L 19 109/70 94 04/19/20 06:00 Pulse Ox 04/19/20 11:39 04/19/20 11:09 04/19/20 09:21 04/19/20 07:24 04/19/20 06:00 94
[2020-04-19] MEDS: APIXABAN 5 MG TABLET PO SCH (16:47)
[2020-04-20] MEDS: APIXABAN 5 MG TABLET PO SCH (06:26)
[2020-04-20] MEDS: AZITHROMYCIN 250 MG TAB PO SCH (08:07)
[2020-04-20] MEDS: LIDOCAINE 5% 1 PATCH TD SCH (08:07)
[2020-04-20] MEDS: DOCUSATE SODIUM/SENNA 50/8.6MG TAB PO SCH (08:08)
[2020-04-20] MEDS: buprenorphine HCL 8 MG SUBL SL SCH (08:12)
[2020-04-20] MEDS: CYCLOBENZAPRINE HCL 10 MG TAB PO PRN (08:59)
--- NOTE | 2020-04-20 13:01 | Discharge Summary ---
Date of Service April 20, 2020 Admission HPI Per Admitting Provider History obtained from patient and records. Medical history significant for chronic anemia (baseline hemoglobin of 13), chronic pain on Suboxone. 2 weeks history of flulike symptoms without chest pain, cough, S OB. 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 Patient seen at the ER 2 weeks ago. Covid 19 swab was positive. Patient discharged home with isolation and supportive management advice. Decreased mobility at home. Last night patient noted pleuritic right flank pain with shortness of breath without hemoptysis. No leg swelling. No prior history of blood clots. 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 Principal Diagnosis Pulmonary embolism COVID 19 Discharge Exam Constitutional WD/WN, vitals as above Eyes PERRL, conjunctivae normal, anicteric sclerae ENMT external ear and nose normal, oropharynx normal Neck trachea midline, no thyromegaly Respiratory normal respiratory effort, lungs clear to auscultation Cardiovascular RRR, no murmur, no edema Gastrointestinal (Abdomen) normal bowel sounds, soft, nontender, no hepatosplenomegaly Musculoskeletal no cyanosis or clubbing, extremities motor strength 5/5 Skin no rashes, warm and dry Neurologic PERRL, EOMI, accommodation nl, no face palsy, no dysarthria Psychiatric A+Ox3, euthymic affect Discharge Data Allergies Allergy/AdvReac Type Severity Reaction Status Date / Time No Known Allergies Allergy Verified 04/16/20 01:40 Consultations 04/16/20 03:51 ED Decision to Admit Stat Ordered Studies 04/16/20 01:32 CT angio chest PE protocol Urgent 04/17/20 04:09 CT abd pelvis wo con Urgent Hospital Course (1) Pulmonary emboli: Patient had recent diagnosis of COVID-19 2 weeks ago, therefore likely provoked DVT. Patient transition to [employer] insurance authorization obtained for [employer] Medically he is okay to be discharged. Possible community-acquired pneumonia On CT abdomen/pelvis patient found to have small bilateral pleural effusions and bilateral lower lobe consolidations. Did have low-grade temperature earlier in the admission. Procalcitonin was not concerning. Patient was treated with ceftriaxone/azithromycin. At discharge patient given script for Levaquin for 2 more days. History of drug abuse Continue with Subutex Hypokalemia -resolved Malnutrition (low BMI) Disposition : discharged home Total Time Total Time Spent Total Time Spent (In Minutes): 30 -35 mins Total Time Includes: Discharge Planning and Medication Reconciliation Discharge Plan Discharge Items Patient Disposition: Home - Self-Care Reason For Visit: PE, COVID Discharge Diagnosis: Pulmonary embolism COVID 19 Activity: Resume your previous activity Non-emergency contact: Primary Care Provider Call non-emergency contact if: your symptoms worsen and your pain is concerning for you Follow-up/Referrals: Nixon Man MD [Primary Care Provider] - 04/21/20 3:00 pm (Date & Time 04/21/2020 3:00 PM Provider Nixon Man MD Department Internal Medicine [facility] PLEASE NOTE THAT THIS IS A TELEPHONE CALL APPOINTMENT. YOUR PHYSICIAN WILL CALL YOU AT THE APPOINTMENT TIME. IF YOU HAVE ANY QUESTIONS, PLEASE CALL ) Diet: Regular Addtl Attending Provider Instructions: Follow-up with your primary care physician within 3 to 5 days. An appointment has been requested. Start taking Eliquis 10 mg daily for 7 days followed by 5 mg daily. Take Levaquin for a total of 2 days starting tomorrow. Addtl Tactical Debriefer Officer Provider Instructions: Home Isolation COVID-19 Instructions The following information about Home Isolation is from the CDC Website: https://www.cdc.gov/coronavirus/2019-ncov/hcp/kffvcvjx-syiavzg-yndwax.html Stay home except to get medical care People who are mildly ill with COVID-19 are able to isolate at home during their illness. You should restrict activities outside your home, except for getting medical care. Do not go to work, school, or public areas. Avoid using public transportation, ride-sharing, or taxis. Separate yourself from other people and animals in your home People: As much as possible, you should stay in a specific room and away from other people in your home. Also, you should use a separate bathroom, if available. Animals: You should restrict contact with pets and other animals while you are sick with COVID-19, just like you would around other people. Although there have not been reports of pets or other animals becoming sick with COVID-19, it is sti ll recommended that people sick with COVID-19 limit contact with animals until more information is known about the virus. When possible, have another member of your household care for your animals while you are sick. If you are sick with COVID-19, avoid contact with your pet, including petting, snuggling, being kissed or licked, and sharing food. If you must care for your pet or be around animals while you are sick, wash your hands before and after you interact with pets and wear a face mask. Call ahead before visiting your doctor If you have a medical appointment, call the healthcare provider and tell them that you have or may have COVID-19. This will help the healthcare providers office take steps to keep other people from getting infected or exposed. Wear a face mask You should wear a face mask when you are around other people (e.g., sharing a room or vehicle) or pets and before you enter a healthcare providers office. If you are not able to wear a face mask (for example, because it causes trouble breathing), then people who live with you should not stay in the same room with you, or they should wear a face mask if they enter your room. Cover your coughs and sneezes Cover your mouth and nose with a tissue when you cough or sneeze. Throw used tissues in a lined trash can. Immediately wash your hands with soap and water for at least 20 seconds or, if soap and water are not available, clean your hands with an alcohol-based hand photoengraving machine operator/tender that contains at least 60% alcohol. Clean your hands often Wash your hands often with soap and water for at least 20 seconds, especially after blowing your nose, coughing, or sneezing; going to the bathroom; and before eating or preparing food. If soap and water are not readily available, use an alcohol-based hand photoengraving machine operator/tender with at least 60% alcohol, covering all surfaces of your hands and rubbing them together until they feel dry. Soap and water are the best option if hands are visibly dirty. Avoid touching your eyes, nose, and mouth with unwashed hands. Avoid sharing personal household items You should not share dishes, drinking glasses, cups, eating utensils, towels, or bedding with other people or pets in your home. After using these items, they should be washed thoroughly with soap and water. Clean all high-touch surfaces everyday High touch surfaces include counters, tabletops, doorknobs, bathroom fixtures, toilets, phones, keyboards, tablets, and bedside tables. Also, clean any surfaces that may have blood, stool, or body fluids on them. Use a household cleaning spray or wipe, according to the label instructions. Labels contain instructions for safe and effective use of the cleaning product including precautions you should take when applying the product, such as wearing gloves and making sure you have good ventilation during use of the product. Monitor your symptoms Seek prompt medical attention if your illness is worsening (e.g., difficulty breathing).Beforeseeking care, call your healthcare provider and tell them that you have, or are being evaluated for, COVID-19. Put on a face mask before you enter the facility. These steps will help the healthcare providers office to keep other people in the office or waiting room from getting infected or exposed. Ask your healthcare provider to call the local or [facility] health department. Persons who are placed under active monitoring or facilitated self- monitoring should follow instructions provided by their local health department or occupational health professionals, as appropriate. When working with your local health department check their available hours. If you have a medical emergency and need to call 911, notify the dispatch personnel that you have, or are being evaluated for COVID-19. If possible, put on a face mask before emergency medical services arrive. Discontinuing home isolation Patients with confirmed COVID-19 should remain under home isolation precautions for at least 10 days after onset of symptoms or positive result -which ever is earlier . need to be symptoms free cough /fever for at least 24 hrs without any medications Pending Studies at Discharge: No Stand-Alone Forms: My [facility], Work/School Release (Inpt), Smoking Cessation Medications and DC Order Prescriptions: New Eliquis 5 mg tablet 5 mg PO BID Qty: 60 RF: 3 Continued buprenorphine HCl 8 mg tablet, sublingual 12 mg SUBLINGUAL DAILY RF: 0 acetaminophen [Tylenol Extra Strength] 500 mg Tablet 500 - 1,000 mg PO DIRECTED PRN (Reason: FEVER/PAIN) RF: 0 Discharge Orders: Discharge Order (Routine); Ordered 04/20/20 Ordered By: Dia Baker/Other Patient Handouts: Apixaban oral tablets, Levofloxacin tablets Admission Data Admit Date/Time: 04/16/20 04:58 Attending Provider: Dia Kumar Admit Provider: Juvenal Ellington Primary Care Provider: Nixon Man Other Providers: Juvenal Ellington ; María Elena Bonner Other Interventions: Discharge Summary Assessment (RN) Last Done: 04/20/20 12:41
== END 2020-04-20 14:30 | disposition home or self-care (01) | DRG 175 ==
LOC: ED 00:58 → 2S 04:58 → SUATTDRO 04:58 → 2S 05:43